=== PATIENT | female | born 1980 | race Hispanic/Latino ===

== ENCOUNTER 2017-07-01 05:29 | Emergency (ER) | payer MEDICAID, OTHER ==
[2017-07-01 05:51] LABS: Bilirubin Negative (Negative); Blood, Urine Negative (Negative); Clarity Clear (Clear); Glucose, Urine (Dipstick) Negative (Negative); Leukocyte Negative (Negative); Nitrite Negative (Negative); Protein, Urine (Dipstick) Negative (Neg-Trace); Urobilinogen 0.2 mg/dL (0.2-1.0)
[2017-07-01] MEDS ORDERED: Ketorolac Tromethamine 30 MG/ML VIAL ONE (05:54)
[2017-07-01 05:58] LABS: Pregnancy Test - Urine (BHCG) Negative (Negative); Pregu Control Background? CLEAR/WHITE (CLR/WHITE); Pregu Control Bar Appear? YES (CONTROL BAR)
[2017-07-01 05:59] LABS: #Basophils 0.1 thou/uL (0.0-0.2); #Eosinphils 0.1 thou/uL (0.0-0.7); #Lymphocytes 1.7 thou/uL (1.20-3.40); #Monocytes 1.4 thou/uL (0.11-0.59); #Neutrophils 14.5 thou/uL (1.40-6.50); %Basophils 0.7 % (0.0-1.0); %Eosinophils 0.6 % (0.0-10.0); %Lymphocytes 9.4 % (21.0-51.0); %Monocytes 7.9 % (0.0-10.0); %Neutrophils 81.4 % (42.0-75.0); Mean Corpuscular HGB CONC 35.5 g/dL (32.0-36.0); Mean Corpuscular Hemoglobin 30.7 pg (27.0-31.0); Mean Corpuscular Volume 86.5 fl (81.0-99.0); Mean Platelet Volume 7.8 fL (7.4-10.4); Platelet Count 272 thou/uL (130-400); RBC Distribution Width 10.7 % (11.5-14.5); Red Blood Cell (RBC) Count 4.22 mill/uL (4.20-5.40); White Blood Cell (WBC) Count 17.8 thou/uL (4.8-10.8)
[2017-07-01 06:16] LABS: ALT (SGPT) 41 U/L (8-55); AST (SGOT) 27 U/L (5-34); Albumin 3.9 g/dL (3.5-5.0); Alkaline Phosphatase 107 U/L (40-150); Anion Gap 13 mmol/L (10-20); BUN (Urea Nitrogen) 13 mg/dL (7.0-18.7); Bilirubin, Total 0.7 mg/dL (0.2-1.2); Calc. Creatinine Clearance 0 mL/min (70-130); Calcium 9.1 mg/dL (7.8-10.44); Carbon Dioxide 25 mmol/L (22-29); Chloride 103 mmol/L (98-107); Estimated GFR-MDRD Greater than 90; Globulin 3.2 g/dL (2.4-3.5); Glucose 101 mg/dL (70-105); Lipase 18 U/L (8-78); Potassium 4.1 mmol/L (3.5-5.1); Protein, Total 7.1 g/dL (6.0-8.3); Sodium 137 mmol/L (136-145)
--- NOTE | 2017-07-01 10:39 | CT ---
PRELIMINARY REPORT/[facility]/EMERGENTY AFTER-HOURS PROCEDURE FINDINGS: The lung bases are clear. No definite gallbladder abnormality by CT. No biliary tree dilation. Possible very small right intrarenal calculus. No hydronephrosis of either kidney. No visible ureteral calculus. Unremarkable appearance of the liver, spleen, adrenal glands, and pancreas. No free air, ascites, or bowel distention. No evidence for abdominal aortic aneurysm. No retroperitoneal adenopathy. CT pelvis: There are moderate to severe inflammatory changes around the mid sigmoid colon, compatible with the d iagnosis of diverticulitis. Prominent associated mucosal/wall thickening. Small amount of pericolonic fluid. No definite pericolo fitz abscess at this time. Other etiologies that could present with a similar appearance would include; other forms of colitis/f ocal inflammatory bowel diseases, and much less likely in this age group, bowel ischemia, or neoplasm . Appropriate followup recommended. The appendix is visualized and appears normal. No abnormal mass or fluid collection in the pelvis. IMPRESSION: Findings compatible with acute diverticulitis, see above details. No free air or bowel distention. Normal appendix. Possible very small right intrarenal calculus. No hydronephrosis of either kidney. No visible ureteral calculus. Other findings discussed above. Thank you for allowing us to participate in the care of your patient. Dictated and Authenticated by: Troy Andrade MD 07/01/2017 6:54 AM Central Time ([place] & [place]) FINAL REPORT EMERGENCY AFTER HOURS CT ABDOMEN AND PELVIS NONCONTRAST: Date: 07/01/17 Time: 0615 hours HISTORY: Bilateral flank pain. FINDINGS: Findings agree with the preliminary report by Dwain. Inflammation within the pelvis is most likely rel ated to acute diverticulitis. Small, nonobstructing right renal calculus is confirmed. POS: [facility]
[2017-07-02 17:58] LABS: Chlamydia by PCR Not Detected (NotDetected); GC by PCR Not Detected (NotDetected)
== END 2017-07-01 07:12 | disposition home or self-care (01) ==
LOC: SCSER 05:29
DX: K57.32 Diverticulitis of large intestine without perforation or abscess without bleeding (principal)
CPT/HCPCS: 74176; 80053; 81003; 81025; 83690; 85025; 87480; 87491; 87510; 87591; 87660; 96372; J1885

== ENCOUNTER 2017-11-02 10:17 | Emergency (ER) | payer MEDICAID, OTHER ==
[2017-11-02] MEDS ORDERED: Ibuprofen 200 MG TAB ONE (10:30)
--- NOTE | 2017-11-02 11:10 | RAD ---
RIGHT ANKLE THREE VIEWS: Indications: Injury with pain. FINDINGS: Prominent soft tissue swelling laterally. There is a transverse nondisplaced fracture involving the l ateral malleolus. No other osseous abnormality. IMPRESSION: Nondisplaced transverse fracture lateral malleolus. POS: [facility]
== END 2017-11-02 11:15 | disposition home or self-care (01) ==
LOC: SCSER 10:17
DX: S82.64XA Nondisplaced fracture of lateral malleolus of right fibula, initial encounter for closed fracture (principal); W18.31XA Fall on same level due to stepping on an object, initial encounter
CPT/HCPCS: 29515

== ENCOUNTER 2018-02-26 08:01 | Emergency (ER) | payer OTHER | END 2018-02-26 08:55 | disposition home or self-care (01) | LOC: SCSER 08:01 | DX: T81.41XA Infection following a procedure, superficial incisional surgical site, initial encounter (principal); F32.9 Major depressive disorder, single episode, unspecified; F41.9 Anxiety disorder, unspecified | CPT/HCPCS: 99283 ==

== ENCOUNTER 2018-09-04 10:21 | Emergency (ER) | payer OTHER ==
[2018-09-04 11:12] LABS: Bilirubin Negative (Negative); Blood, Urine Small (Negative); Clarity Hazy (Clear); Glucose, Urine (Dipstick) Negative (Negative); Leukocyte Negative (Negative); Nitrite Negative (Negative); Pregnancy Test - Urine (BHCG) Negative (Negative); Protein, Urine (Dipstick) Negative (Neg-Trace); Specific Gravity 1.025 (1.002-1.036); Specific Gravity, Urine 1.025 (1.005-1.030); Urobilinogen 0.2 mg/dL (0.2-1.0); pH, Urine 5.5 (5.0-9.0)
[2018-09-04 11:13] LABS: Pregu Control Background? CLEAR/WHITE (CLR/WHITE); Pregu Control Bar Appear? YES (CONTROL BAR)
[2018-09-04 11:20] LABS: Bacteria/HPF 2+ HPF (None Seen); WBC/HPF None Seen HPF (0-3)
--- NOTE | 2018-09-04 11:23 | RAD ---
PORTABLE CHEST: HISTORY: Cough x 2 weeks. FINDINGS: Heart size and mediastinum are within normal limits. The lungs are clear of infiltrates. No signifi cant bony findings. IMPRESSION: No active intrathoracic disease. POS: [facility]
[2018-09-04] MEDS ORDERED: Dexamethasone 4 MG TAB ONE (11:56)
[2018-09-04] MEDS ORDERED: Dexamethasone 1 MG TAB ONE (11:56)
== END 2018-09-04 12:03 | disposition home or self-care (01) ==
LOC: SCSER 10:21
DX: J20.9 Acute bronchitis, unspecified (principal); F41.9 Anxiety disorder, unspecified; F32.9 Major depressive disorder, single episode, unspecified; Z79.899 Other long term (current) drug therapy
CPT/HCPCS: 71045; 81003; 81015; 81025; 87081; 87430; J8540

== ENCOUNTER 2018-10-15 17:38 | Emergency (ER) | payer OTHER ==
[~2018-10-15 17:38] MED LIST: ISOVUE-370 76%-LOCM 1 ML ONE
[2018-10-15 18:12] LABS: Bilirubin Negative (Negative); Blood, Urine Negative (Negative); Clarity Clear (Clear); Glucose, Urine (Dipstick) Normal (Negative); Leukocyte Negative Leu/uL (Negative); Nitrite Negative (Negative); Protein, Urine (Dipstick) Negative (Neg-Trace)
[2018-10-15 18:12] LABS: #Eosinphils 0.1 thou/uL (0.0-0.7); #Lymphocytes 1.8 thou/uL (1.20-3.40); #Monocytes 1.3 thou/uL (0.11-0.59); #Neutrophils 11.3 thou/uL (1.40-6.50); %Basophils 0.1 % (0.0-1.0); %Eosinophils 0.6 % (0.0-10.0); %Lymphocytes 12.2 % (21.0-51.0); %Monocytes 8.9 % (0.0-10.0); %Neutrophils 78.2 % (42.0-75.0); Hemoglobin 13.3 g/dL (12.0-16.0); Mean Corpuscular HGB CONC 32.4 g/dL (32.0-36.0); Mean Corpuscular Hemoglobin 29.7 pg (27.0-31.0); Mean Corpuscular Volume 91.5 fL (78.0-98.0); Mean Platelet Volume 8.5 fL (7.4-10.4); Platelet Count 254 thou/uL (130-400); RBC Distribution Width 11.4 % (11.5-14.5); Red Blood Cell (RBC) Count 4.47 mill/uL (4.20-5.40); White Blood Cell (WBC) Count 14.5 thou/uL (4.8-10.8)
[2018-10-15 18:34] LABS: ALT (SGPT) 378 U/L (8-55); AST (SGOT) 144 U/L (5-34); Albumin 3.9 g/dL (3.5-5.0); Alkaline Phosphatase 245 U/L (40-150); Anion Gap 13 mmol/L (10-20); BUN (Urea Nitrogen) 10 mg/dL (7.0-18.7); Bilirubin, Total 0.6 mg/dL (0.2-1.2); Calc. Creatinine Clearance 0 mL/min (70-130); Calcium 9.6 mg/dL (7.8-10.44); Carbon Dioxide 25 mmol/L (22-29); Chloride 104 mmol/L (98-107); Estimated GFR-MDRD Greater than 90; Globulin 3.3 g/dL (2.4-3.5); Glucose 87 mg/dL (70-105); Lipase 22 U/L (8-78); Potassium 3.5 mmol/L (3.5-5.1); Protein, Total 7.2 g/dL (6.0-8.3); Sodium 138 mmol/L (136-145)
[2018-10-15] MEDS ORDERED: Morphine 4 MG/ML VIAL ONE ×2 (18:55→20:10)
[2018-10-15] MEDS ORDERED: Ondansetron PF 4 MG/2 ML Vial ONE (18:55)
[2018-10-15 19:22] LABS: BHCG - Serum Negative (NEGATIVE); Pregs Control Background? CLEAR/WHITE (CLR/WHITE); Pregs Control Bar Appear? YES (CONTROL BAR)
--- NOTE | 2018-10-15 19:49 | CT ---
CT ABDOMEN AND PELVIS WITH IV CONTRAST: HISTORY: Abdominal pain. COMPARISON: CT abdomen and pelvis from 07/01/2017. FINDINGS: The lung bases are clear. The liver, spleen, and pancreas are unremarkable. The adrenal glands and kidneys are unremarkable. Small bowel loops are of normal caliber. The appendix appears normal. Review of the colon reveals diverticula in the left colon and sigmoid. There is inflammatory change in the left pelvis, surrounding the sigmoid colon. There is radiopaque suture material in this regio n, indicating a prior surgical procedure. There is mucosal thickening and mural edema. No evidence of loculated fluid or abscess collection at this time. No evidence of extraluminal gas. The uterus and bladder are unremarkable. The aorta is of normal caliber. There is an anterior abdominal wall hernia at the level of the umbilicus, which is a new finding when compared to the prior study. IMPRESSION: Inflammatory change surrounding the sigmoid colon, in the left pelvis and left lower quadrant, consis tent with probable diverticulitis. There are postoperative changes at this location, and some of the stranding may be postoperative in nature. Recommend correlation with laboratory values and clinical findings. Recommend short-term followup. POS: [facility]
[2018-10-15] MEDS ORDERED: metroNIDAZOLE 500 MG/100 ML BAG ONE (20:11)
--- NOTE | 2018-10-15 21:51 | ULT ---
GALLBLADDER ULTRASOUND: HISTORY: Abdominal pain. FINDINGS: Images of the gallbladder reveal a small, echogenic gallstone in the neck of the gallbladder. The ga llbladder wall is normal. The common duct is of normal caliber. The visualized liver, pancreas, and right kidney appear unremarkable as imaged. Negative Moreno sign. IMPRESSION: Cholelithiasis is documented. POS: [facility]
[2018-10-15] MEDS ORDERED: HYDROcodone/Acetaminophen 5/325 mg Tablet ONE (22:39)
== END 2018-10-15 22:46 | disposition home or self-care (01) ==
LOC: ERS 17:38
DX: K80.20 Calculus of gallbladder without cholecystitis without obstruction (principal); K57.32 Diverticulitis of large intestine without perforation or abscess without bleeding; F32.9 Major depressive disorder, single episode, unspecified; F41.9 Anxiety disorder, unspecified; Z79.899 Other long term (current) drug therapy
CPT/HCPCS: 36415; 74177; 76705; 80053; 81003; 83690; 84703; 85025; 96361; 96365; 96366; 96368; 96375; 96376; J1956; J2270; J2405; Q9966

== ENCOUNTER 2018-10-22 07:47 | Day surgery (SDC) | payer OTHER ==
--- NOTE | 2018-10-19 09:55 | HP ---
HISTORY OF PRESENT ILLNESS: Anne Barber is a 37-year-old white female, who is accompanied by her daughter. She recently complained of epigastric right upper quadrant pain and left lower quadrant pain and presented to [facility]. The patient has been seen by a doctor at [facility] in July 2017. She presented with left lower quadrant pain, lower abdominal pain, was seen in the emergency room. CAT scan documented diverticulitis and she was treated with antibiotics as an outpatient. She had recurrent symptoms, presented to the emergency again and was admitted. She was treated with intravenous antibiotics and sent home. She was seen by Dr. Bal while in the hospital on one occasion and he recommended surgery. She never had a colonoscopy. She underwent a bowel prep and sigmoid colon resection. She states since that time, she has been having intermittent drainage in her upper midline incision. She states that she is "allergic" to the suture. She has had recently recurrent pain in her left lower quadrant and underwent a repeat CAT scan at [facility] on 10/15/2018 when she presented with right upper quadrant pain and lower abdominal pain. This CAT scan revealed gallstones, inflammatory changes in the pelvis. Ultrasound confirmed gallstones with a normal bile duct caliber. She had laboratories that were unremarkable. She was sent home with Levaquin and Flagyl for 10 days, 750 mg of Levaquin a day, 500 mg of Flagyl t.i.d. She states her pain has somewhat improved in the last 2 days since she has been on these antibiotics. She does report she left AMA from [facility] during her hospitalization. She has been having bowel movements and passing flatus. FAMILY HISTORY: There is no family history for colon cancer. SOCIAL HISTORY: Tobacco, none. Alcohol, socially. MEDICATIONS: 1. Flagyl 500 t.i.d. 2. Levaquin 750 a day, 10-day course, two days into the treatment. ALLERGIES: NONE. PAST SURGICAL HISTORY: Tubal ligation, sigmoid colon resection in 2018, Dr. Bal in [facility]. REVIEW OF SYSTEMS: Ten-point noncontributory. PAST MEDICAL HISTORY: History of cholelithiasis, history of diverticulitis and sigmoid colon resection, history of anxiety, history of depression. The patient has been seen in [place] [facility]. She has stopped her medications for her anxiety and depression and stated she did not like how they made her feel and she feels that she is functioning well. The patient is hoping to go to nursing school. PHYSICAL EXAMINATION: VITAL SIGNS: Weight 127 pounds, height 4 feet 10 inches, blood pressure 112/76, heart rate 106, temperature 98.2 degrees. HEAD, EARS, EYES, NOSE AND THROAT: Unremarkable. LUNGS: Clear to auscultation. CARDIAC: Regular rate and rhythm without murmur or gallop. ABDOMEN: Soft. Mild tenderness in right upper quadrant. Mild tenderness in the left lower quadrant for deep palpation. The patient has a midline incision from above her umbilicus to her pubis. In the apex of the incision just at the level of just slightly above the umbilicus, there is a small opening in the incision about a cm. It is about a 0.5 cm deep. There is no evidence on probing of sinus tract. EXTREMITIES: Unremarkable. No ankle edema. Palpable pulses in all extremities. LYMPH: No lymphadenopathy in neck, axilla, or groin. NEUROLOGIC: Intact. ASSESSMENT AND PLAN: 1. Cholecystitis, cholelithiasis. Plan laparoscopic video cholecystectomy. She understands risks and benefits of the procedure. She understands risks of infection, bleeding, visceral and biliary injury. Questions have been answered. 2. The patient has an open wound in the apex of her incision, midline, just above the umbilicus. When probed, there was no appreciable sinus tracts. She reports this intermittently opens and closes. I have explained to her that sometimes she can have a suture granuloma that will intermittently drain. There does not appear to be a sinus tract. At the time of the operation under general anesthetic, we will explore this wound to assure that she does not have a suture granuloma. I do not have the operative report that Dr. Bal performed to know whether he used absorbable sutures or not. 3. Diverticulitis. The patient had a sigmoid colon resection last year. She has not had a colonoscopy. There is no family history of colon cancer. It is unlikely. The recent CAT scan at [facility] suggests recurrent diverticulitis. I have explained to the patient how all this could happen. Currently, I would recommend liquids to soft foods until her pain resolves or markedly improves, then slowly advance her diet to a low-fiber soft diet for 3 weeks, then advance to a high-fiber diet. I have recommended a future colonoscopy. Plan would be at this time to try to avoid repeat colon resection. Hopefully, we can treat this medically, dietary. 4. Anxiety and depression. She stopped her home medications. She follows up with a [facility] in [place]. Job ID: [id number]
[2018-10-19 10:42] VITALS: BMI 27.1
[2018-10-22] MEDS ORDERED: Levofloxacin 500 mg/D5W 100 ml Premix Bag ONE (08:41)
[2018-10-22] MEDS ORDERED: Midazolam HCl 2 mg/2 ml Vial ONE ×2 (11:10→11:50)
[2018-10-22] MEDS ORDERED: Bupivacaine HCl 0.5%/Epinephrine 1:200,000/PF 30 ml Vial ONE (11:24)
[2018-10-22] MEDS ORDERED: Fentanyl 250 MCG/5 ML VIAL ONE (11:49)
[2018-10-22] MEDS ORDERED: SUGAMMADEX SODIUM 500 MG/5 ML VIAL ONE (12:36)
[2018-10-22] MEDS ORDERED: SUGAMMADEX SODIUM 200 MG/2 ML VIAL ONE (12:37)
[2018-10-22] MEDS ORDERED: Fentanyl 100 MCG/2 ML VIAL ONE (13:21)
[2018-10-22] MEDS ORDERED: Promethazine HCl 25 MG/ML VIAL ONE (13:46)
--- NOTE | 2018-10-22 15:07 | OP ---
DATE OF PROCEDURE: 10/22/2018 PREOPERATIVE DIAGNOSES: Chronic cholecystitis, cholelithiasis. Suture granuloma from prior colon resection, recurrently breaking down wound just above the umbilicus, midline incision. Being treated for recurrent diverticulitis, status post sigmoid colon resection. POSTOPERATIVE DIAGNOSES: Chronic cholecystitis, cholelithiasis. Suture granuloma from prior colon resection, recurrently breaking down wound just above the umbilicus, midline incision. Being treated for recurrent diverticulitis, status post sigmoid colon resection with adhesions from prior surgery. FINDINGS: Cholecystitis, cholelithiasis. Normal-appearing liver. Too many adhesions about the left lower abdomen to evaluate her colon. Removal of Prolene double-loop suture granuloma long length of suture along with Prolene knots. Wound left open for healing by secondary intention to remove dressing in place. Antibiotic ointment and Band-Aid the next day. ANESTHESIA: General, local of 0.5% Marcaine with epinephrine 30 mL, total volume used. DESCRIPTION OF PROCEDURE: The patient was taken to the operating room, where under general anesthesia after receiving IC-Green for visualization of the biliary tree, abdomen was prepared with ChloraPrep and draped in routine fashion. Local anesthetic was infiltrated in the skin and subcutaneous tissue about the operative site because of a prior infraumbilical incision, right subcostal midclavicular incision made. Pneumoperitoneum to 15 mmHg was obtained with a Veress needle, replacing with a 5 port, video laparoscope inserted. Periumbilical area had adhesions as well as the left pelvis and colon was not able to be visualized. Right periumbilical incision was made and a 5 port placed and video laparoscope moved to this port. Right subxiphoid incision was made and an 11 port placed. Right lateral subcostal incision made and a 5 port placed. Liver appeared to be normal. Fundus of the gallbladder was grasped at the cephalad. Infundibulum was grasped and reflected laterally. The visualization was changed such that we could visualize the bile duct and cystic duct readily. Cystic artery and duct dissected free. Critical view obtained. Cystic artery and duct double clipped proximally, divided and gallbladder dissected free from the liver bed. Removing gallbladder and gallstones, submitted to Pathology. Good hemostasis was assured with the cautery. Irrigant and pneumoperitoneum evacuated. All instruments removed. All skin incisions were approximated with interrupted subdermal 4-0 Monocryl and [place] glue applied. I then explored the wound at the apex of the scar just above the umbilicus. The wound, which had chronically been open and closing was currently closed, thus an incision was made and exploration revealed a Prolene suture with multiple knots and long length segment with double-loop, which was removed, excised as much as possible. Wound left open. Gauze dressing applied. Job ID: [id number]
[2018-10-22] MEDS ORDERED: Rocuronium Bromide 10 MG/ML (10ML VIAL) ONE (16:53)
[2018-10-22] MEDS ORDERED: Lidocaine 1% PF 5 ML VIAL ONE (16:53)
[2018-10-22] MEDS ORDERED: PROPOFOL 200 MG/20 ML VIAL ONE (16:53)
[2018-10-22] MEDS ORDERED: Ketorolac Tromethamine 30 MG/ML VIAL ONE (16:53)
[2018-10-22] MEDS ORDERED: Ondansetron PF 4 MG/2 ML Vial ONE (16:53)
[2018-10-22] MEDS ORDERED: Dexamethasone 20 MG/5 ML VIAL ONE (16:53)
== END 2018-10-22 15:15 | disposition home or self-care (01) ==
LOC: SDC 07:47
PROVIDERS: ATTEND Specialist
PROC: 0JC80ZZ Extirpation of Matter from Abdomen Subcutaneous Tissue and Fascia, Open Approach (ICD-10-PCS; principal; 2018-10-22)
PROC: 0FT44ZZ Resection of Gallbladder, Percutaneous Endoscopic Approach (ICD-10-PCS; principal; 2018-10-22)
DX: K81.1 Chronic cholecystitis (principal); M60.28 Foreign body granuloma of soft tissue, not elsewhere classified, other site; K66.0 Peritoneal adhesions (postprocedural) (postinfection); S31.102A Unspecified open wound of abdominal wall, epigastric region without penetration into peritoneal cavity, initial encounter; K57.92 Diverticulitis of intestine, part unspecified, without perforation or abscess without bleeding; F41.9 Anxiety disorder, unspecified; F32.9 Major depressive disorder, single episode, unspecified; Z18.89 Other specified retained foreign body fragments; Z79.2 Long term (current) use of antibiotics; Z79.899 Other long term (current) drug therapy; Z88.5 Allergy status to narcotic agent; Z90.49 Acquired absence of other specified parts of digestive tract
CPT/HCPCS: 88304; J0131; J0670; J1956; J2250; J2550; J3010

== ENCOUNTER 2019-05-09 10:39 | Emergency (ER) | payer OTHER ==
--- NOTE | 2019-05-09 11:00 | RAD ---
SINGLE VIEW CHEST: Date: 05/09/2019 COMPARISON: 09/04/18. HISTORY: Chest pain. FINDINGS: Single view of the chest shows a normal sized cardiomediastinal silhouette. There is no evidence of c onsolidation, mass, or pleural effusion. The bones are unremarkable. IMPRESSION: No evidence of acute cardiopulmonary disease. POS: [facility]
[2019-05-09] MEDS ORDERED: Aspirin 81 mg Enteric Coated Tablet ONE (11:09)
[2019-05-09 11:39] LABS: #Eosinphils 0.1 thou/uL (0.0-0.7); #Lymphocytes 2.2 thou/uL (1.20-3.40); #Monocytes 0.7 thou/uL (0.11-0.59); %Basophils 0.5 % (0.0-1.0); %Eosinophils 1.3 % (0.0-10.0); %Lymphocytes 21.6 % (21.0-51.0); %Monocytes 7.3 % (0.0-10.0); %Neutrophils 69.3 % (42.0-75.0); Hemoglobin 14.4 g/dL (12.0-16.0); Mean Corpuscular HGB CONC 33.3 g/dL (32.0-36.0); Mean Corpuscular Hemoglobin 30.4 pg (27.0-31.0); Mean Corpuscular Volume 91.3 fL (78.0-98.0); Mean Platelet Volume 8.4 fL (7.4-10.4); Platelet Count 317 thou/uL (130-400); RBC Distribution Width 11.4 % (11.5-14.5); Red Blood Cell (RBC) Count 4.75 mill/uL (4.20-5.40)
[2019-05-09 12:00] LABS: ALT (SGPT) 35 U/L (8-55); AST (SGOT) 27 U/L (5-34); Albumin 4.2 g/dL (3.5-5.0); Alkaline Phosphatase 110 U/L (40-110); Anion Gap 10 mmol/L (10-20); BUN (Urea Nitrogen) 16 mg/dL (7.0-18.7); Bilirubin, Total 0.3 mg/dL (0.2-1.2); Calc. Creatinine Clearance 0 mL/min (70-130); Calcium 9.5 mg/dL (7.8-10.44); Carbon Dioxide 25 mmol/L (22-29); Chloride 106 mmol/L (98-107); Estimated GFR-MDRD 83; Globulin 3.3 g/dL (2.4-3.5); Glucose 87 mg/dL (70-105); Lipase 29 U/L (8-78); Potassium 4.2 mmol/L (3.5-5.1); Protein, Total 7.5 g/dL (6.0-8.3); Sodium 137 mmol/L (136-145)
[2019-05-09] MEDS ORDERED: Lorazepam 2 MG/ML VIAL ONE (12:27)
--- NOTE | 2019-05-09 14:19 | CT ---
CT PULMONARY ANGIOGRAM WITH IV CONTRAST AND 3D POSTPROCESSING: HISTORY: A 38-year-old female with chest pain and left-sided arm tingling and numbness. FINDINGS: There is good contrast opacification of the pulmonary arterial vasculature without filling defects to suggest pulmonary embolism. There is good opacification of the thoracic aorta without aneurysmal di ssection. No pleural or pericardial effusions are seen. No pneumothorax, focal areas of consolidati on, lung nodules, or masses are noted. There are mild dependent changes in the lung bases. No acute osseous abnormalities are seen. Upper abdominal tomograms demonstrate postop changes of cholecystec naresh. IMPRESSION: No CT evidence of pulmonary embolism or thoracic aortic dissection/aneurysm. POS: [facility]
[2019-05-09] MEDS ORDERED: Iopamidol 370 76% 100 ML VIAL ONE (16:29)
== END 2019-05-09 14:52 | disposition home or self-care (01) ==
LOC: ERS 10:39
DX: R07.9 Chest pain, unspecified (principal); F41.9 Anxiety disorder, unspecified; F32.9 Major depressive disorder, single episode, unspecified
CPT/HCPCS: 71045; 71275; 80053; 83690; 84484; 85025; 93005; 94760; 96361; 96374; J2060; Q9967

== ENCOUNTER 2019-09-16 10:07 | Emergency (ER) | payer OTHER ==
[2019-09-16 11:11] LABS: #Basophils 0.1 thou/uL (0.0-0.2); #Lymphocytes 1.8 thou/uL (1.20-3.40); #Monocytes 0.7 thou/uL (0.11-0.59); #Neutrophils 5.7 thou/uL (1.40-6.50); %Basophils 0.9 % (0.0-1.0); %Eosinophils 0.4 % (0.0-10.0); %Lymphocytes 21.9 % (21.0-51.0); %Monocytes 8.6 % (0.0-10.0); %Neutrophils 68.2 % (42.0-75.0); Hemoglobin 13.1 g/dL (12.0-16.0); Mean Corpuscular HGB CONC 33.2 g/dL (32.0-36.0); Mean Corpuscular Hemoglobin 30.9 pg (27.0-31.0); Mean Corpuscular Volume 93.1 fL (78.0-98.0); Mean Platelet Volume 8.4 fL (7.4-10.4); Platelet Count 264 thou/uL (130-400); RBC Distribution Width 11.5 % (11.5-14.5); Red Blood Cell (RBC) Count 4.25 mill/uL (4.20-5.40); White Blood Cell (WBC) Count 8.3 thou/uL (4.8-10.8)
[2019-09-16] MEDS ORDERED: Ondansetron ODT 4 MG TAB ONE (11:11)
[2019-09-16] MEDS ORDERED: Dicyclomine 20 MG TAB ONE (11:11)
[2019-09-16 11:20] LABS: BHCG - Serum Negative (NEGATIVE); Pregs Control Background? CLEAR/WHITE (CLR/WHITE); Pregs Control Bar Appear? YES (CONTROL BAR)
[2019-09-16 11:29] LABS: ALT (SGPT) 21 U/L (8-55); AST (SGOT) 17 U/L (5-34); Alkaline Phosphatase 84 U/L (40-110); Anion Gap 10 mmol/L (10-20); BUN (Urea Nitrogen) 11 mg/dL (7.0-18.7); Bilirubin, Total 0.3 mg/dL (0.2-1.2); CK (CPK) 39 U/L (29-168); Calc. Creatinine Clearance 0 mL/min (70-130); Calcium 8.9 mg/dL (7.8-10.44); Carbon Dioxide 26 mmol/L (22-29); Chloride 106 mmol/L (98-107); Estimated GFR-MDRD Greater than 90; Globulin 3.1 g/dL (2.4-3.5); Glucose 82 mg/dL (70-105); Lipase 20 U/L (8-78); Magnesium 2.1 mg/dL (1.6-2.6); Potassium 3.5 mmol/L (3.5-5.1); Protein, Total 7.1 g/dL (6.0-8.3); Sodium 138 mmol/L (136-145)
[2019-09-16] MEDS ORDERED: Iopamidol-370 76% 500 ML 1 ML ONE (13:48)
--- NOTE | 2019-09-16 15:39 | CT ---
CT ABDOMEN AND PELVIS WITH ORAL AND IV CONTRAST: HISTORY: Abdominal pain with nausea and vomiting, urinary frequency, and dysuria. No fever. The patient had a history of diverticulitis surgery with colonic resection. COMPARISON: 10/15/2018. FINDINGS: The lung bases are clear. The liver, spleen, pancreas, adrenal glands, and kidneys are normal. The patient is post cholecystectomy. No free air or lymphadenopathy is seen in the abdomen or pelvis. T here is a tiny amount of free fluid within the pelvis. The small bowel loops are not abnormally dilated. No pericolonic inflammatory changes are seen. The re are postop changes of resection of pars of the sigmoid colon. A normal appearing appendix is pres ent. Uterus and ovaries are present. There is a 16 mm popliteal cyst in the right ovary. The aorta is of normal caliber. No osteolytic or osteoblastic lesions are seen. There is a predominantly fat-containing umbilical hernia with a small portion of transverse colon. A n infraumbilical fat-containing hernia is seen. IMPRESSION: Right ovarian corpus luteal cyst and a tiny amount of free fluid in the pelvis. POS: [facility]
== END 2019-09-16 14:33 | disposition home or self-care (01) ==
LOC: ERS 10:07
DX: R11.2 Nausea with vomiting, unspecified (principal); R19.7 Diarrhea, unspecified; F41.9 Anxiety disorder, unspecified; F32.9 Major depressive disorder, single episode, unspecified; Z79.899 Other long term (current) drug therapy
CPT/HCPCS: 36415; 74177; 80053; 82550; 83605; 83690; 83735; 84703; 85025; 96360; 96361; Q0162; Q9967

== ENCOUNTER 2020-07-03 11:01 | Emergency (ER) | payer OTHER ==
[2020-07-03] MEDS ORDERED: Ondansetron PF 4 MG/2 ML Vial ONE (11:23)
[2020-07-03] MEDS ORDERED: Ketorolac Tromethamine 30 MG/ML VIAL ONE ×2 (11:23→14:18)
[2020-07-03] MEDS ORDERED: Morphine 4 MG/ML VIAL ONE (11:23)
[2020-07-03 12:06] LABS: #Basophils 0.1 thou/uL (0.0-0.2); #Lymphocytes 1.9 thou/uL (1.20-3.40); #Monocytes 0.6 thou/uL (0.11-0.59); #Neutrophils 6.7 thou/uL (1.40-6.50); %Basophils 0.8 % (0.0-1.0); %Eosinophils 0.4 % (0.0-10.0); %Lymphocytes 20.7 % (21.0-51.0); %Monocytes 6.6 % (0.0-10.0); %Neutrophils 71.5 % (42.0-75.0); Hemoglobin 14.2 g/dL (12.0-16.0); Mean Corpuscular HGB CONC 32.8 g/dL (32.0-36.0); Mean Corpuscular Volume 91.5 fL (78.0-98.0); Platelet Count 285 thou/uL (130-400); RBC Distribution Width 11.4 % (11.5-14.5); Red Blood Cell (RBC) Count 4.72 mill/uL (4.20-5.40); White Blood Cell (WBC) Count 9.3 thou/uL (4.8-10.8)
[2020-07-03 12:13] LABS: BHCG - Serum Negative (NEGATIVE); Pregs Control Background? CLEAR/WHITE (CLR/WHITE); Pregs Control Bar Appear? YES (CONTROL BAR)
[2020-07-03 12:29] LABS: ALT (SGPT) 40 U/L (8-55); AST (SGOT) 24 U/L (5-34); Alkaline Phosphatase 102 U/L (40-110); Anion Gap 13 mmol/L (10-20); BUN (Urea Nitrogen) 18 mg/dL (7.0-18.7); Bilirubin, Total 0.5 mg/dL (0.2-1.2); Calc. Creatinine Clearance 0 mL/min (70-130); Calcium 8.9 mg/dL (7.8-10.44); Carbon Dioxide 25 mmol/L (22-29); Chloride 104 mmol/L (98-107); Globulin 3.4 g/dL (2.4-3.5); Glucose 107 mg/dL (70-105); Lipase 29 U/L (8-78); Potassium 3.6 mmol/L (3.5-5.1); Protein, Total 7.4 g/dL (6.0-8.3); Sodium 138 mmol/L (136-145)
[2020-07-03 13:04] LABS: Bilirubin Negative (Negative); Blood, Urine Negative (Negative); Clarity Extra Turbid (Clear); Glucose, Urine (Dipstick) Normal (Negative); Ketone, Urine Negative (Negative); Leukocyte Negative Leu/uL (Negative); Nitrite Negative (Negative); Protein, Urine (Dipstick) Negative (Neg-Trace); Specific Gravity, Urine 1.024 (1.002-1.036); Urobilinogen Normal mg/dL (Less than 2)
== END 2020-07-03 14:21 | disposition home or self-care (01) ==
LOC: ERS 11:01
DX: N83.201 Unspecified ovarian cyst, right side (principal); Z87.19 Personal history of other diseases of the digestive system; Z79.899 Other long term (current) drug therapy
CPT/HCPCS: 74176; 76856; 80053; 81003; 83690; 84703; 85025; 93005; 96374; 96375; 96376; J1885; J2270; J2405

== ENCOUNTER 2020-11-19 11:52 | Outpatient (CLI) | payer OTHER | END 2020-11-19 11:53 | disposition home or self-care (01) | LOC: MRI 11:52 | DX: G43.011 Migraine without aura, intractable, with status migrainosus (principal) | CPT/HCPCS: 70553 ==

== ENCOUNTER 2021-04-09 13:10 | Outpatient (CLI) | payer OTHER | END 2021-04-09 13:11 | disposition home or self-care (01) | LOC: BICCT 13:10 | PROVIDERS: ATTEND Specialist | DX: R10.9 Unspecified abdominal pain (principal) | CPT/HCPCS: 74177 ==

== ENCOUNTER 2022-05-24 13:42 | Outpatient (CLI) | payer OTHER | END 2022-05-24 13:43 | disposition home or self-care (01) | LOC: RAD 13:42 | PROVIDERS: ATTEND Family Medicine | DX: R00.2 Palpitations (principal) | CPT/HCPCS: 71046 ==

== ENCOUNTER 2022-09-20 18:00 | Outpatient (CLI) | payer OTHER | END 2022-09-20 18:01 | disposition home or self-care (01) | LOC: SLEEPLAB 18:00 | PROVIDERS: ATTEND Internal Medicine Critical Care Medicine | DX: G47.33 Obstructive sleep apnea (adult) (pediatric) (principal); R53.83 Other fatigue | CPT/HCPCS: 95800 ==

== ENCOUNTER 2022-11-25 10:56 | Outpatient (CLI) | payer OTHER | END 2022-11-25 10:57 | disposition home or self-care (01) | LOC: NM 10:56 | PROVIDERS: ATTEND Internal Medicine Critical Care Medicine | DX: R06.00 Dyspnea, unspecified (principal) | CPT/HCPCS: 71046; 78451; A9540 ==

== ENCOUNTER 2023-03-07 08:09 | Outpatient (CLI) | payer OTHER | END 2023-03-07 08:10 | disposition home or self-care (01) | LOC: BICMAMMO 08:09 | PROVIDERS: ATTEND Student in an Organized Health Care Education/Training Program | DX: N64.52 Nipple discharge (principal); N63.10 Unspecified lump in the right breast, unspecified quadrant | CPT/HCPCS: 77066; G0279 ==